=== PATIENT | female | born 1960 | race Caucasian/White ===

== ENCOUNTER 2017-01-03 19:41 | Inpatient (IN) | payer OTHER, MEDICARE ==
[2017-01-03] MEDS ORDERED: ONDANSETRON HCL 4 MG/2 ML VIAL ONE (19:46)
[2017-01-03 19:50] VITALS: O2SAT 99
[2017-01-03 20:04] LABS: I-STAT POTASSIUM 3.6 MMOL/L (3.5-4.9)
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
[2017-01-03 20:05] LABS: AUTOMATED NEUTROPHIL # 3.3 TH/MM3 (1.8-7.7); BASOPHIL # 0.1 TH/MM3 (0-0.2); BASOPHIL % 1.3 % (0.0-2.0); EOSINOPHIL # 0.3 TH/MM3 (0-0.4); EOSINOPHIL % 3.5 % (0.0-4.0); HEMATOCRIT 42.2 % (35.0-46.0); HEMO FLAGS DIFF FINAL; LYMPH % 41.4 % (9.0-44.0); MEAN CELL VOLUME 99.6 FL (80.0-100.0); MEAN CORPUSCULAR HEMOGLOBIN 32.8 PG (27.0-34.0); MEAN CORPUSCULAR HGB CONC 32.9 % (32.0-36.0); MONO % 7.4 % (0.0-8.0); NEUT % 46.4 % (16.0-70.0); PLATELET COUNT 221 TH/MM3 (150-450); RED BLOOD COUNT 4.23 MIL/MM3 (4.00-5.30); WHITE BLOOD COUNT 7.2 TH/MM3 (4.0-11.0)
[2017-01-03] MEDS ORDERED: IOHEXOL 350 MG/ML 10 ML VIAL (for RAD DIAG) IVCONTRAST ONE (20:08)
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
[2017-01-03 20:33] LABS: APTT (PATIENT) 23.9 SEC (24.3-30.1); PROTHROMBIN TIME - PATIENT 10.9 SEC (9.8-11.6)
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
[2017-01-03] MEDS ORDERED: DIPHTH/TETANUS/ACEL PERTUSSIS (BOOSTER) 0.5 ML VIAL/PFS IM ONE (20:43)
[2017-01-03] MEDS ORDERED: ceFAZolin 2 GM PREMIX 50 ML ONE (20:43)
[2017-01-03] MEDS ORDERED: ENALAPRILAT 1.25 MG/ML VIAL IV PUSH PRN (20:45)
[2017-01-03] MEDS ORDERED: LIDOCAINE HCL 1% 50 ML VIAL INFIL ONE (20:45)
[2017-01-03] MEDS ORDERED: ONDANSETRON HCL 4 MG/2 ML VIAL IV PUSH PRN (20:45)
[2017-01-03] MEDS ORDERED: HYDROmorphone HCL PF 1 MG/ML VIAL IVP PRN (20:45)
[2017-01-03] MEDS ORDERED: FLUMAZENIL 0.5 MG/5 ML VIAL IV PUSH PRN (20:45)
[2017-01-03] MEDS ORDERED: MISCELLANEOUS NURSING INFORMATION XX SCH (20:45)
[2017-01-03] MEDS ORDERED: LORazepam 2 MG/ML VIAL IV PUSH PRN ×4 (20:45)
[2017-01-03] MEDS ORDERED: SODIUM CHLORIDE 0.9% FLUSH 10 ML FLUSH IV FLUSH PRN (20:45)
[2017-01-03] MEDS ORDERED: LORazepam 1 MG TAB PO PRN (20:45)
[2017-01-03] MEDS ORDERED: LORazepam 2 MG TAB PO PRN (20:45)
[2017-01-03] MEDS ORDERED: CHLORHEXIDINE GLUCONATE 2 % 1 PACK (2 CLOTHS) TOP PRN (20:45)
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
[2017-01-03 21:00] VITALS: BP 121/66; PULSE 88; RESP 20; O2SAT 100
[2017-01-03] MEDS: DOCUSATE SODIUM 100 MG CAP PO SCH (21:00)
[2017-01-03] MEDS ORDERED: PANTOPRAZOLE SODIUM 40 MG VIAL IVP SCH (21:00)
[2017-01-03] MEDS: BACITRACIN TOP OINT 15 GM TUBE TOP SCH (21:00)
[2017-01-03 21:05] VITALS: RESP 20; O2SAT 100
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
[2017-01-03 21:45] VITALS: PULSE 92
[2017-01-03 22:00] VITALS: PULSE 97
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
[2017-01-03] MEDS: MULTIVITAMIN INJ 10 ML, THIAMINE INJ 100 MG in SODIUM CHLORID 0.9% 500 ML INJ 500 ML IV SCH (23:00)
[2017-01-03] MEDS: LACTATED RINGER'S 1000 ML INJ 1,000 ML IV SCH (23:00)
[2017-01-04] VITALS (12 sets, daily range): BP systolic 134–169; BP diastolic 60–72; PULSE 83–106; RESP 18–22; TEMP 98.2–100; O2SAT 96–99
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
[2017-01-04] MEDS: CHLORHEXIDINE GLUCONATE 2 % 1 PACK (2 CLOTHS) TOP SCH (04:00)
[2017-01-04 05:15] LABS: BASOPHIL % 0.5 % (0.0-2.0); EOSINOPHIL % 0.1 % (0.0-4.0); HEMATOCRIT 34.8 % (35.0-46.0); HEMO FLAGS DIFF FINAL; LYMPHOCYTE # 0.7 TH/MM3 (1.0-4.8); MEAN CELL VOLUME 99.7 FL (80.0-100.0); MEAN CORPUSCULAR HEMOGLOBIN 32.9 PG (27.0-34.0); MONO % 7.5 % (0.0-8.0); NEUT % 84.9 % (16.0-70.0); PLATELET COUNT 161 TH/MM3 (150-450); RED BLOOD COUNT 3.49 MIL/MM3 (4.00-5.30); RED CELL DISTRIBUTION WIDTH 14.1 % (11.6-17.2); WHITE BLOOD COUNT 9.4 TH/MM3 (4.0-11.0)
[2017-01-04 05:29] LABS: POTASSIUM 4.3 MEQ/L (3.5-5.1)
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
[2017-01-04] MEDS: LACTATED RINGER'S 1000 ML INJ 1,000 ML IV SCH ×2 (08:44→20:36)
[2017-01-04] MEDS: DOCUSATE SODIUM 100 MG CAP PO SCH ×2 (08:46→08:47)
[2017-01-04] MEDS: BACITRACIN TOP OINT 15 GM TUBE TOP SCH ×2 (08:48→21:28)
[2017-01-04] MEDS: LIDOCAINE HCL 5% PATCH T-DERMAL SCH (09:00)
[2017-01-04] MEDS: METHOCARBAMOL 500 MG TAB PO SCH ×3 (09:00→21:28)
[2017-01-04] MEDS: MAGNESIUM HYDROXIDE SUSP 30 ML CUP PO SCH ×2 (09:00→21:28)
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
[2017-01-04] MEDS: ACETAMINOPHEN/HYDROcodone 325 MG/5 MG TAB PO PRN (13:34)
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
[2017-01-04] MEDS ORDERED: IOHEXOL 350 MG/ML 10 ML VIAL (for RAD DIAG) IVCONTRAST ONE (18:56)
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
[2017-01-04] MEDS: MULTIVITAMIN INJ 10 ML, THIAMINE INJ 100 MG in SODIUM CHLORID 0.9% 500 ML INJ 500 ML IV SCH (22:23)
[2017-01-05] VITALS (8 sets, daily range): BP systolic 129–157; BP diastolic 62–71; PULSE 75–90; RESP 16–22; TEMP 98.2–98.5; O2SAT 95–97
[2017-01-05] MEDS: CHLORHEXIDINE GLUCONATE 2 % 1 PACK (2 CLOTHS) TOP SCH (00:15)
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
[2017-01-05 05:13] LABS: AUTOMATED NEUTROPHIL # 5.2 TH/MM3 (1.8-7.7); BASOPHIL # 0.1 TH/MM3 (0-0.2); BASOPHIL % 0.8 % (0.0-2.0); EOSINOPHIL # 0.1 TH/MM3 (0-0.4); EOSINOPHIL % 1.6 % (0.0-4.0); HEMATOCRIT 29.5 % (35.0-46.0); HEMO FLAGS DIFF FINAL; LYMPH % 14.2 % (9.0-44.0); MEAN CELL VOLUME 99.1 FL (80.0-100.0); MEAN CORPUSCULAR HEMOGLOBIN 33.2 PG (27.0-34.0); MEAN CORPUSCULAR HGB CONC 33.5 % (32.0-36.0); MONO % 11.5 % (0.0-8.0); NEUT % 71.9 % (16.0-70.0); PLATELET COUNT 130 TH/MM3 (150-450); RED BLOOD COUNT 2.98 MIL/MM3 (4.00-5.30); RED CELL DISTRIBUTION WIDTH 13.9 % (11.6-17.2); WHITE BLOOD COUNT 7.3 TH/MM3 (4.0-11.0)
[2017-01-05] MEDS: METHOCARBAMOL 500 MG TAB PO SCH ×3 (05:16→22:33)
[2017-01-05] MEDS: ACETAMINOPHEN/HYDROcodone 325 MG/5 MG TAB PO PRN ×2 (05:17→14:48)
[2017-01-05 05:42] LABS: ANION GAP 9 MEQ/L (5-15); AST (GOT) 57 U/L (15-37); BICARBONATE 25.8 MEQ/L (21.0-32.0); BLOOD UREA NITROGEN 7 MG/DL (7-18); CHLORIDE 101 MEQ/L (98-107); GLOMERULAR FILTRATION RATE 160 ML/MIN (>89); POTASSIUM 3.8 MEQ/L (3.5-5.1); SODIUM (NA) 136 MEQ/L (136-145)
[2017-01-05 05:43] LABS: ALT (GPT) 48 U/L (10-53)
[2017-01-05 05:45] LABS: ALKALINE PHOSPHATASE 78 U/L (45-117); TOTAL BILIRUBIN ADULT 1.4 MG/DL (0.2-1.0)
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
[2017-01-05] MEDS: DOCUSATE SODIUM 100 MG CAP PO SCH ×2 (09:18→20:03)
[2017-01-05] MEDS: LACTULOSE SYRUP 20 GM/30 ML CUP PO SCH (09:18)
[2017-01-05] MEDS: MAGNESIUM HYDROXIDE SUSP 30 ML CUP PO SCH ×2 (09:18→20:03)
[2017-01-05] MEDS: PANTOPRAZOLE SOD 40 MG DELAYED RELEASE TAB PO SCH (09:18)
[2017-01-05] MEDS: BACITRACIN TOP OINT 15 GM TUBE TOP SCH ×2 (09:20→21:00)
[2017-01-05] MEDS: LIDOCAINE HCL 5% PATCH T-DERMAL SCH (09:20)
[2017-01-05] MEDS: ENOXAPARIN SODIUM 40 MG/0.4 ML SYRINGE SQ SCH (12:30)
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
[2017-01-05] MEDS ORDERED: MAGN30S PO (15:20)
[2017-01-05] MEDS ORDERED: METH500T3 PO (15:20)
[2017-01-05] MEDS ORDERED: DOCU1CAP39 PO (15:20)
[2017-01-05] MEDS: MULTIVITAMIN INJ 10 ML, THIAMINE INJ 100 MG in SODIUM CHLORID 0.9% 500 ML INJ 500 ML IV SCH (22:33)
[2017-01-06] VITALS: BP 145/65; PULSE 83; RESP 21; TEMP 98.6; O2SAT 93
[2017-01-06 04:00] VITALS: BP 150/68; PULSE 74; PULSE 76; RESP 20; TEMP 98.4; O2SAT 96
[2017-01-06] MEDS: CHLORHEXIDINE GLUCONATE 2 % 1 PACK (2 CLOTHS) TOP SCH ×2 (04:00→23:46)
[2017-01-06 05:35] LABS: AUTOMATED NEUTROPHIL # 4.5 TH/MM3 (1.8-7.7); BASOPHIL % 0.7 % (0.0-2.0); EOSINOPHIL # 0.1 TH/MM3 (0-0.4); EOSINOPHIL % 2.2 % (0.0-4.0); HEMATOCRIT 28.3 % (35.0-46.0); HEMO FLAGS DIFF FINAL; LYMPH % 16.3 % (9.0-44.0); MEAN CELL VOLUME 99.2 FL (80.0-100.0); MEAN CORPUSCULAR HEMOGLOBIN 32.8 PG (27.0-34.0); MEAN CORPUSCULAR HGB CONC 33.1 % (32.0-36.0); MONO % 9.2 % (0.0-8.0); NEUT % 71.6 % (16.0-70.0); PLATELET COUNT 143 TH/MM3 (150-450); RED BLOOD COUNT 2.85 MIL/MM3 (4.00-5.30); RED CELL DISTRIBUTION WIDTH 13.7 % (11.6-17.2); WHITE BLOOD COUNT 6.3 TH/MM3 (4.0-11.0)
[2017-01-06 06:06] LABS: ALT (GPT) 44 U/L (10-53); ANION GAP 7 MEQ/L (5-15); AST (GOT) 46 U/L (15-37); BICARBONATE 28.8 MEQ/L (21.0-32.0); BLOOD UREA NITROGEN 8 MG/DL (7-18); CHLORIDE 102 MEQ/L (98-107); GLOMERULAR FILTRATION RATE 170 ML/MIN (>89); SODIUM (NA) 138 MEQ/L (136-145)
[2017-01-06 06:07] LABS: ALKALINE PHOSPHATASE 81 U/L (45-117); TOTAL BILIRUBIN ADULT 0.9 MG/DL (0.2-1.0)
[2017-01-06] MEDS: METHOCARBAMOL 500 MG TAB PO SCH ×3 (06:19→21:00)
--- NOTE | 2017-01-06 06:22 | RADRPT ---
EXAM DATE/TIME: 01/06/2017 05:37 [facility] COMPARISON: CHEST SINGLE AP, January 05, 2017, 4:33. INDICATIONS : Shortness of breath. MEDICAL HISTORY : None. SURGICAL HISTORY : None. ENCOUNTER: Subsequent ACUITY: 4 - 6 days PAIN SCORE: Non-responsive. LOCATION: Bilateral chest FINDINGS: A single view of the chest demonstrates the lungs to be symmetrically aerated without evidence of mas s, infiltrate or effusion. The cardiomediastinal contours are unremarkable. Left clavicular fracture is unchanged. CONCLUSION: Left clavicular fracture stable. Lungs remain clear. Russell Shah MD on January 06, 2017 at 6:20 Board Certified Radiologist. This report was verified electronically.
[2017-01-06 08:00] VITALS: BP 134/98; PULSE 74; RESP 14; TEMP 97.6; O2SAT 96
[2017-01-06] MEDS ORDERED: ALPRAZolam 0.5 MG TAB PO PRN (09:30)
[2017-01-06] MEDS: MAGNESIUM HYDROXIDE SUSP 30 ML CUP PO SCH ×2 (10:00→21:00)
[2017-01-06] MEDS: DOCUSATE SODIUM 100 MG CAP PO SCH ×2 (10:00→21:00)
[2017-01-06] MEDS: PANTOPRAZOLE SOD 40 MG DELAYED RELEASE TAB PO SCH (10:00)
[2017-01-06] MEDS: LACTULOSE SYRUP 20 GM/30 ML CUP PO SCH (10:00)
[2017-01-06] MEDS: LIDOCAINE HCL 5% PATCH T-DERMAL SCH (10:01)
[2017-01-06] MEDS: ENOXAPARIN SODIUM 40 MG/0.4 ML SYRINGE SQ SCH (10:02)
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
[2017-01-06 12:00] VITALS: BP 140/74; PULSE 77; RESP 20; TEMP 98.1; O2SAT 98
[2017-01-06] MEDS: ACETAMINOPHEN/HYDROcodone 325 MG/5 MG TAB PO PRN (12:45)
[2017-01-06 16:00] VITALS: BP 141/62; PULSE 75; RESP 20; TEMP 98; O2SAT 96
[2017-01-06 20:00] VITALS: BP 131/64; PULSE 85; RESP 17; TEMP 98.8; O2SAT 100
[2017-01-06] MEDS: BACITRACIN TOP OINT 15 GM TUBE TOP SCH (21:00)
[2017-01-07] VITALS (7 sets, daily range): BP systolic 99–141; BP diastolic 66–79; PULSE 74–123; RESP 19–26; TEMP 97.6–98.4; O2SAT 97–100
[2017-01-07] MEDS ORDERED: METOPROLOL TARTRATE 5 MG/5 ML VIAL IV PUSH PRN (02:30)
[2017-01-07] MEDS: METHOCARBAMOL 500 MG TAB PO SCH ×4 (05:23→22:45)
[2017-01-07 05:53] LABS: AUTOMATED NEUTROPHIL # 3.6 TH/MM3 (1.8-7.7); BASOPHIL # 0.1 TH/MM3 (0-0.2); BASOPHIL % 1.1 % (0.0-2.0); EOSINOPHIL # 0.2 TH/MM3 (0-0.4); EOSINOPHIL % 3.8 % (0.0-4.0); HEMATOCRIT 30.8 % (35.0-46.0); HEMO FLAGS DIFF FINAL; LYMPH % 24.2 % (9.0-44.0); LYMPHOCYTE # 1.4 TH/MM3 (1.0-4.8); MEAN CELL VOLUME 99.1 FL (80.0-100.0); MEAN CORPUSCULAR HEMOGLOBIN 32.9 PG (27.0-34.0); MEAN CORPUSCULAR HGB CONC 33.2 % (32.0-36.0); MONO % 8.3 % (0.0-8.0); NEUT % 62.6 % (16.0-70.0); PLATELET COUNT 207 TH/MM3 (150-450); RED BLOOD COUNT 3.11 MIL/MM3 (4.00-5.30); RED CELL DISTRIBUTION WIDTH 13.6 % (11.6-17.2); WHITE BLOOD COUNT 5.7 TH/MM3 (4.0-11.0)
[2017-01-07 06:19] LABS: ANION GAP 6 MEQ/L (5-15); AST (GOT) 47 U/L (15-37); BLOOD UREA NITROGEN 9 MG/DL (7-18); CHLORIDE 99 MEQ/L (98-107); GLOMERULAR FILTRATION RATE 98 ML/MIN (>89); POTASSIUM 3.9 MEQ/L (3.5-5.1); SODIUM (NA) 134 MEQ/L (136-145)
[2017-01-07 06:20] LABS: ALT (GPT) 44 U/L (10-53)
--- NOTE | 2017-01-07 06:22 | RADRPT ---
EXAM DATE/TIME: 01/07/2017 06:08 [facility] COMPARISON: CHEST SINGLE AP, January 05, 2017, 4:33. CHEST SINGLE AP, January 06, 2017, 5:37. INDICATIONS : Short of breath. MEDICAL HISTORY : SURGICAL HISTORY : ENCOUNTER: Subsequent ACUITY: 4 - 6 days PAIN SCORE: Non-responsive. LOCATION: Bilateral chest FINDINGS: A single view of the chest demonstrates the lungs to be symmetrically aerated without evidence of mas s, infiltrate or effusion. The cardiomediastinal contours are unremarkable. The left clavicular frac ture is unchanged. CONCLUSION: Stable examination. Left clavicular fracture remains. Lungs are clear. Russell Shah MD on January 07, 2017 at 6:19 Board Certified Radiologist. This report was verified electronically.
[2017-01-07 06:23] LABS: ALKALINE PHOSPHATASE 88 U/L (45-117)
[2017-01-07] MEDS: PANTOPRAZOLE SOD 40 MG DELAYED RELEASE TAB PO SCH (08:31)
[2017-01-07] MEDS: DOCUSATE SODIUM 100 MG CAP PO SCH ×2 (08:31→21:00)
[2017-01-07] MEDS: MAGNESIUM HYDROXIDE SUSP 30 ML CUP PO SCH ×2 (08:31→21:00)
[2017-01-07] MEDS: BACITRACIN TOP OINT 15 GM TUBE TOP SCH ×2 (08:32→21:00)
[2017-01-07] MEDS: LIDOCAINE HCL 5% PATCH T-DERMAL SCH (08:32)
[2017-01-07] MEDS: LACTULOSE SYRUP 20 GM/30 ML CUP PO SCH (08:32)
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
[2017-01-07] MEDS: METOPROLOL SUCCINATE 25 MG EXTENDED RELEASE TAB PO SCH (10:44)
[2017-01-07 12:20] LABS: HEMATOCRIT 30.7 % (35.0-46.0); MEAN CELL VOLUME 99.1 FL (80.0-100.0); MEAN CORPUSCULAR HEMOGLOBIN 33.7 PG (27.0-34.0); PLATELET COUNT 235 TH/MM3 (150-450); RED CELL DISTRIBUTION WIDTH 13.6 % (11.6-17.2); REVIEW FLAG FINAL; WHITE BLOOD COUNT 6.7 TH/MM3 (4.0-11.0)
[2017-01-07 12:34] LABS: APTT (PATIENT) 27.8 SEC (24.3-30.1); INTERNATIONAL NORMALIZED RATIO 0.9 RATIO
[2017-01-07] MEDS: DILTIAZEM INJ 125 MG in SODIUM CHLORIDE 0.9% INJ 100 ML IV PRN (12:37)
[2017-01-07] MEDS ORDERED: LACTULOSE SYRUP 20 GM/30 ML CUP PO ONE (12:45)
[2017-01-07] MEDS: HEPARIN-D5W 25,000 U/250 ML 250 ML IV PRN (12:48)
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
[2017-01-07] MEDS: SODIUM CHLOR 0.9% 1000 ML INJ 1,000 ML IV SCH (15:00)
[2017-01-07] MEDS ORDERED: ALBUMIN 25% INJ 100 ML IV ONE (15:00)
[2017-01-07 20:45] LABS: APTT (PATIENT) 33.1 SEC (24.3-30.1)
[2017-01-08] VITALS (9 sets, daily range): BP systolic 130–158; BP diastolic 61–72; PULSE 82–93; RESP 12–28; TEMP 97.8–98.5; O2SAT 96–98
[2017-01-08] MEDS: CHLORHEXIDINE GLUCONATE 2 % 1 PACK (2 CLOTHS) TOP SCH (00:37)
[2017-01-08] MEDS: SODIUM CHLOR 0.9% 1000 ML INJ 1,000 ML IV SCH ×2 (04:20→17:40)
[2017-01-08] MEDS: METHOCARBAMOL 500 MG TAB PO SCH ×4 (05:15→21:19)
[2017-01-08 05:34] LABS: APTT (PATIENT) 38.4 SEC (24.3-30.1)
[2017-01-08 05:39] LABS: BICARBONATE 27.5 MEQ/L (21.0-32.0); POTASSIUM 3.8 MEQ/L (3.5-5.1)
[2017-01-08] MEDS: LACTULOSE SYRUP 20 GM/30 ML CUP PO SCH (07:20)
[2017-01-08] MEDS: DOCUSATE SODIUM 100 MG CAP PO SCH ×2 (07:20→20:22)
[2017-01-08] MEDS: MAGNESIUM HYDROXIDE SUSP 30 ML CUP PO SCH ×2 (07:20→20:22)
[2017-01-08] MEDS: BACITRACIN TOP OINT 15 GM TUBE TOP SCH ×2 (07:21→20:22)
[2017-01-08] MEDS: PANTOPRAZOLE SOD 40 MG DELAYED RELEASE TAB PO SCH (07:55)
[2017-01-08] MEDS: LIDOCAINE HCL 5% PATCH T-DERMAL SCH (07:55)
[2017-01-08] MEDS: METOPROLOL SUCCINATE 25 MG EXTENDED RELEASE TAB PO SCH (07:55)
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
[2017-01-08 12:56] LABS: APTT (PATIENT) 41.3 SEC (24.3-30.1)
[2017-01-08] MEDS: QUEtiapine FUMARATE 25 MG TAB PO SCH ×2 (12:56→20:22)
--- NOTE | 2017-01-08 18:15 | EKG ---
Date Performed: 01/07/2017 Time Performed: 05:11:14 PTAGE: 56 years EKG: Atrial fibrillation with rapid ventricular response. Inferior ST-T changes are nonspecific Abnormal ECG NO PREVIOUS TRACING DOCTOR: Mykel Nava Interpretating Date/Time 01/08/2017 18:14:06
[2017-01-08] MEDS: HEPARIN-D5W 25,000 U/250 ML 250 ML IV PRN (18:55)
[2017-01-08 19:56] LABS: APTT (PATIENT) 44.1 SEC (24.3-30.1)
[2017-01-09] VITALS (12 sets, daily range): BP systolic 111–170; BP diastolic 53–74; PULSE 73–103; RESP 18–20; TEMP 97.6–98.3; O2SAT 95–97
[2017-01-09] MEDS: CHLORHEXIDINE GLUCONATE 2 % 1 PACK (2 CLOTHS) TOP SCH (04:00)
[2017-01-09] MEDS: DILTIAZEM INJ 125 MG in SODIUM CHLORIDE 0.9% INJ 100 ML IV PRN (04:44)
[2017-01-09] MEDS: SODIUM CHLOR 0.9% 1000 ML INJ 1,000 ML IV SCH (04:44)
[2017-01-09] MEDS: METHOCARBAMOL 500 MG TAB PO SCH ×3 (05:24→21:25)
[2017-01-09 05:37] LABS: APTT (PATIENT) 50.6 SEC (24.3-30.1)
[2017-01-09] MEDS: MAGNESIUM HYDROXIDE SUSP 30 ML CUP PO SCH ×2 (09:00→20:14)
[2017-01-09] MEDS: LACTULOSE SYRUP 20 GM/30 ML CUP PO SCH (09:00)
[2017-01-09] MEDS: DOCUSATE SODIUM 100 MG CAP PO SCH ×2 (09:00→20:13)
[2017-01-09] MEDS: METOPROLOL SUCCINATE 25 MG EXTENDED RELEASE TAB PO SCH (09:05)
[2017-01-09] MEDS: QUEtiapine FUMARATE 25 MG TAB PO SCH ×2 (09:05→20:13)
[2017-01-09] MEDS: PANTOPRAZOLE SOD 40 MG DELAYED RELEASE TAB PO SCH (09:05)
[2017-01-09] MEDS: BACITRACIN TOP OINT 15 GM TUBE TOP SCH ×2 (09:07→20:15)
[2017-01-09] MEDS: LIDOCAINE HCL 5% PATCH T-DERMAL SCH (09:07)
[2017-01-09] MEDS: APIXABAN 5 MG TABLET PO SCH ×2 (10:18→20:13)
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
[2017-01-09] MEDS: NICOTINE 14 MG/24 HR PATCH T-DERMAL SCH (15:32)
[2017-01-09] MEDS: DILTIAZEM HCL 60 MG TAB PO SCH ×2 (17:46→20:13)
[2017-01-10] VITALS (11 sets, daily range): BP systolic 100–146; BP diastolic 56–75; PULSE 66–88; RESP 15–21; TEMP 95.6–98.2; O2SAT 96–99
[2017-01-10] MEDS: CHLORHEXIDINE GLUCONATE 2 % 1 PACK (2 CLOTHS) TOP SCH (04:00)
[2017-01-10] MEDS: METHOCARBAMOL 500 MG TAB PO SCH ×3 (05:30→21:25)
[2017-01-10 06:16] LABS: APTT (PATIENT) 30.8 SEC (24.3-30.1)
[2017-01-10 06:25] LABS: HEMATOCRIT 29.7 % (35.0-46.0); MEAN CELL VOLUME 99.3 FL (80.0-100.0); MEAN CORPUSCULAR HEMOGLOBIN 33.1 PG (27.0-34.0); MEAN CORPUSCULAR HGB CONC 33.3 % (32.0-36.0); PLATELET COUNT 315 TH/MM3 (150-450); RED BLOOD COUNT 2.99 MIL/MM3 (4.00-5.30); RED CELL DISTRIBUTION WIDTH 13.6 % (11.6-17.2); REVIEW FLAG FINAL; WHITE BLOOD COUNT 5.6 TH/MM3 (4.0-11.0)
[2017-01-10] MEDS: LACTULOSE SYRUP 20 GM/30 ML CUP PO SCH (09:00)
[2017-01-10] MEDS: BACITRACIN TOP OINT 15 GM TUBE TOP SCH ×2 (09:00→19:40)
[2017-01-10] MEDS: MAGNESIUM HYDROXIDE SUSP 30 ML CUP PO SCH ×2 (09:00→19:39)
[2017-01-10] MEDS: REMOVE OLD NICOTINE PATCH T-DERMAL SCH (09:00)
[2017-01-10] MEDS: NICOTINE 14 MG/24 HR PATCH T-DERMAL SCH (09:14)
[2017-01-10] MEDS: APIXABAN 5 MG TABLET PO SCH ×2 (09:15→19:39)
[2017-01-10] MEDS: QUEtiapine FUMARATE 25 MG TAB PO SCH ×2 (09:15→19:39)
[2017-01-10] MEDS: LIDOCAINE HCL 5% PATCH T-DERMAL SCH (09:15)
[2017-01-10] MEDS: METOPROLOL SUCCINATE 25 MG EXTENDED RELEASE TAB PO SCH (09:16)
[2017-01-10] MEDS: PANTOPRAZOLE SOD 40 MG DELAYED RELEASE TAB PO SCH (09:16)
[2017-01-10] MEDS: DOCUSATE SODIUM 100 MG CAP PO SCH ×2 (09:16→19:39)
[2017-01-10] MEDS: DILTIAZEM HCL 60 MG TAB PO SCH ×4 (09:16→21:25)
--- NOTE | 2017-01-10 10:06 | ECHRPT ---
Indication: AFIB CONCLUSIONS Normal left ventricular size. Wall thickness is normal. The left ventricular systolic function is normal with an estimated ejection fraction in the range of 55-60%. Mild to moderate mitral valve regurgitation. myxomatous appearing mitral valve leaflest withmild prolapse BP: 135 / 72 HR: 87 Rhythm: Atrial fibrillation Technical Quality:Good FINDINGS LEFT VENTRICLE Normal left ventricular size. Wall thickness is normal. The left ventricular systolic function is normal with an estimated ejection fraction in the range of 55-60%. RIGHT VENTRICLE Normal right ventricular size and systolic function. LEFT ATRIUM The left atrial size is normal. RIGHT ATRIUM The right atrial size is normal. ATRIAL SEPTUM Normal atrial septal thickness without atrial level shunting by limited color doppler interrogation. AORTA The aortic root and proximal ascending aorta are normal in size on limited imaging. MITRAL VALVE Mild mitral valve regurgitation. AORTIC VALVE Trileaflet aortic valve. No aortic valve stenosis or regurgitation. TRICUSPID VALVE Structurally normal tricuspid valve. No tricuspid valve stenosis or regurgitation. PULMONARY VALVE The pulmonary valve is not well visualized. VESSELS The inferior vena cava is normal in size. PERICARDIUM No pericardial effusion. Mendel Terry MD, FACC, [facility] [place] (Electronically Signed) Final Date:10 January 2017 10:05
[2017-01-10] MEDS ORDERED: APIX5TAB PO (11:40)
[2017-01-10] MEDS ORDERED: DILT60TA33 PO (11:40)
[2017-01-10] MEDS ORDERED: NICO14DI23 T-DERMAL (11:40)
[2017-01-10] MEDS ORDERED: METO1TAB42 PO (11:40)
[2017-01-10] MEDS ORDERED: HYDR-3516 PO (11:47)
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
[2017-01-10] MEDS ORDERED: PROP10TA6 PO (18:55)
[2017-01-10] MEDS ORDERED: COUM4TAB PO (18:55)
[2017-01-10] MEDS ORDERED: CART120C PO (18:55)
[2017-01-10] MEDS ORDERED: DIGO0.12 PO (18:55)
[2017-01-10] MEDS ORDERED: ATOR80TA45 PO (18:55)
[2017-01-11] VITALS: BP 94/55; PULSE 89; RESP 18; TEMP 96.1; O2SAT 96
[2017-01-11 04:00] VITALS: BP 106/60; PULSE 90; RESP 18; TEMP 96.5; O2SAT 98
[2017-01-11] MEDS: CHLORHEXIDINE GLUCONATE 2 % 1 PACK (2 CLOTHS) TOP SCH (04:00)
[2017-01-11] MEDS: METHOCARBAMOL 500 MG TAB PO SCH ×3 (05:34→21:08)
[2017-01-11] MEDS: ACETAMINOPHEN/HYDROcodone 325 MG/5 MG TAB PO PRN ×4 (05:34→21:18)
--- NOTE | 2017-01-11 06:43 | PD.ORT.PN ---
Subjective Subjective Remarks Pain is controlled. She is resting comfortably Objective Vitals Vital Signs Date Time Temp Pulse Resp B/P (MAP) Pulse Ox O2 Delivery O2 Flow Rate FiO2 01/11/17 04:00 96.5 90 18 106/60 (75) 98 01/11/17 00:00 96.1 89 18 94/55 (68) 96 01/10/17 23:24 88 01/10/17 20:00 98.2 79 18 118/56 (76) 98 Manual Cuff/Auscultation 01/10/17 16:00 95.6 66 18 127/65 (85) 99 01/10/17 13:45 100/62 (75) 01/10/17 12:00 74 01/10/17 12:00 97.9 74 18 113/57 (75) 98 01/10/17 10:00 68 01/10/17 08:00 98.2 73 15 146/66 (92) 99 01/10/17 08:00 73 01/10/17 08:00 97 Room Air I/O 01/10/17 01/10/17 01/10/17 01/11/17 01/11/17 01/11/17 07:00 15:00 23:00 07:00 15:00 23:00 Intake Total 600 ml 240 ml 240 ml Output Total 650 ml 650 ml Balance -50 ml -650 ml 240 ml 240 ml Intake Oral 600 ml 240 ml 240 ml Output Urine Total 650 ml 650 ml # Voids 1 2 # Bowel Movements 0 0 0 0 Result Diagram: 01/10/17 0518 01/08/17 0501 Imaging Last 24 hours Impressions Knee X-Ray 01/04/17 0000 Signed Impressions: Service Date/Time: Wednesday, January 04, 2017 08:45 - CONCLUSION: Fibular fracture. CT scan would be benefit to look at the tibia. Ck Llamas MD FACR Chest X-Ray 01/04/17 0000 Signed Impressions: Service Date/Time: Wednesday, January 04, 2017 03:11 - CONCLUSION: Normal examination. Russell Shah MD Thoracic Spine CT 01/03/171943 Signed Impressions: Service Date/Time: Tuesday, January 03, 2017 20:08 - CONCLUSION: No acute thoracic spine abnormality is identified. Alek Wodo MD Pelvis X-Ray 01/03/171943 Signed Impressions: Service Date/Time: Tuesday, January 03, 2017 19:44 - CONCLUSION: No acute finding is appreciated given the technique. Alek Wood MD Maxillofacial CT 01/03/171943 Signed Impressions: Service Date/Time: Tuesday, January 03, 2017 19:58 - CONCLUSION: Bilateral nasal bone fractures with soft tissue swelling. No other maxillofacial fracture is identified on this motion degraded exam. Alek Wood MD Lumbar Spine CT 01/03/171943 Signed Impressions: Service Date/Time: Tuesday, January 03, 2017 20:08 - CONCLUSION: No acute lumbar spine abnormality is identified. Alek Wood MD Head CT 01/03/171943 Signed Impressions: Service Date/Time: Tuesday, January 03, 2017 19:58 - CONCLUSION: 1. No acute intracranial abnormality is identified. 2. Bilateral nasal bone fractures. 3. Mild right frontal scalp soft tissue swelling with subcutaneous air. 4. Encephalomalacia in the left frontal and temporal lobes likely related to old ischemic event. Alek Wood MD Chest X-Ray 01/03/171943 Signed Impressions: Service Date/Time: Tuesday, January 03, 2017 19:44 - CONCLUSION: 1. Partially visualized left mid clavicle fracture. 2. Possible air space consolidation/contusion in the right midlung zone. Alek Wood MD Chest CT 01/03/171943 Signed Impressions: Service Date/Time: Tuesday, January 03, 2017 20:08 - CONCLUSION: 1. Bilateral acute rib fractures involving the sixth through eighth ribs on the right and the second and third ribs on the left. No pneumothorax is present. 2. Comminuted left midclavicle fracture. Questionable nondisplaced midsternal fracture. 3. Patchy airspace opacities in the right upper and right middle lobe could represent atelectasis or pulmonary contusion. Alek Wood MD Cervical Spine CT 01/03/171943 Signed Impressions: Service Date/Time: Tuesday, January 03, 2017 19:58 - CONCLUSION: No acute cervical spine abnormality is identified. Alek Wood MD Abdomen/Pelvis CT 01/03/171943 Signed Impressions: Service Date/Time: Tuesday, January 03, 2017 20:08 - CONCLUSION: There is a 12 mm hypodense area in the medial aspect of the spleen which is nonspecific but could represent splenic contusion. No other acute finding is identified in the abdomen or pelvis. Alek Wood MD Objective Remarks Right lower extremity: Short leg splint and knee immobilizer in place. Distally intact sensation active dorsiflexion plantar flexion of toes.. Good capillary refills Left upper extremity: Tenderness to palpation over clavicle. No tenderness over elbow wrist or fingers. Full extension and flexion of all fingers Assessment & Plan Assessment and Plan 1) Left Clavicle Fx - nonop -maintain sling -NWB 2) Right Distal Tibia and Calcaneus fxs - nonop -maintain splint at all times -NWB 3) Right Tibial Plateau Fx - nonop -CT reviewed. fracture aligned well. will plan for nonop treatment -knee brace at all times -no leg lifts, quad sets, ROM, strengthening. -NWB Case management for rehabilitation placement Orthopedically cleared for discharge to rehabilitation when bed available Repeat x-rays in 10-[address] uLisa Simpson,Ted GREENBERG Jan 11, 2017 06:43
[2017-01-11 08:00] VITALS: BP 98/69; PULSE 86; RESP 17; TEMP 96.5; O2SAT 97
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
[2017-01-11] MEDS: QUEtiapine FUMARATE 25 MG TAB PO SCH ×2 (10:09→21:08)
[2017-01-11] MEDS: DILTIAZEM HCL 60 MG TAB PO SCH ×4 (10:10→21:07)
[2017-01-11] MEDS: DOCUSATE SODIUM 100 MG CAP PO SCH ×2 (10:10→21:07)
[2017-01-11] MEDS: PANTOPRAZOLE SOD 40 MG DELAYED RELEASE TAB PO SCH (10:10)
[2017-01-11] MEDS: METOPROLOL SUCCINATE 25 MG EXTENDED RELEASE TAB PO SCH (10:10)
[2017-01-11] MEDS: REMOVE OLD NICOTINE PATCH T-DERMAL SCH (10:11)
[2017-01-11] MEDS: APIXABAN 5 MG TABLET PO SCH ×2 (10:11→21:08)
[2017-01-11] MEDS: NICOTINE 14 MG/24 HR PATCH T-DERMAL SCH (10:11)
[2017-01-11] MEDS: LACTULOSE SYRUP 20 GM/30 ML CUP PO SCH (10:12)
[2017-01-11] MEDS: LIDOCAINE HCL 5% PATCH T-DERMAL SCH (10:12)
[2017-01-11] MEDS: BACITRACIN TOP OINT 15 GM TUBE TOP SCH ×2 (10:18→21:00)
[2017-01-11] MEDS: MAGNESIUM HYDROXIDE SUSP 30 ML CUP PO SCH ×2 (10:18→21:07)
--- NOTE | 2017-01-11 10:20 | RADRPT ---
EXAM DATE/TIME: 01/11/2017 09:33 [facility] COMPARISON: CT ANKLE RIGHT W/O CONTRAST, January 03, 2017, 21:10. ANKLE RIGHT LIMITED (AP&LAT), January 03 17, 19:44. INDICATIONS : Right ankle pain; evaluate right ankle fracture. MEDICAL HISTORY : None. SURGICAL HISTORY : None. ENCOUNTER: Subsequent ACUITY: 1 week PAIN SCORE: 8/10 LOCATION: Right ankle. FINDINGS: 3 views of the right ankle with overlying cast material in place again documents a comminuted fractur e of the posterior calcaneus with similar configuration to the prior examination. The fracture involv ing the distal tibia described on prior CT is not appreciated on this examination. There is mild soft tissue swelling. No radiopaque foreign body is identified. CONCLUSION: Posterior calcaneus fracture has a stable appearance and the distal tibia fracture is not visualized. Alek Wood MD on January 11, 2017 at 10:15 Board Certified Radiologist. This report was verified electronically.
--- NOTE | 2017-01-11 10:22 | RADRPT ---
EXAM DATE/TIME: 01/11/2017 09:35 [facility] COMPARISON: CT KNEE RIGHT W/O CONTRAST, January 04, 2017, 18:11. KNEE RIGHT LTD (1 OR 2 VWS), January 04, 2017 , 8:45. INDICATIONS : Right knee pain; evaluate right knee fracture. MEDICAL HISTORY : None. SURGICAL HISTORY : None. ENCOUNTER: Subsequent ACUITY: 1 week PAIN SCORE: 10/10 LOCATION: Right knee. FINDINGS: 3 views of the right knee demonstrate a transverse fracture of the proximal tibial metaphysis and tib ial plateau. There is a stable moderate to large joint effusion. No acute soft tissue abnormality is identified. CONCLUSION: Stable examination of the right knee with large joint effusion and proximal tibia fracture. Alek Wood MD on January 11, 2017 at 10:18 Board Certified Radiologist. This report was verified electronically.
[2017-01-11 12:00] VITALS: BP 98/69; PULSE 94; RESP 17; TEMP 96.5; O2SAT 98
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
[2017-01-11 16:00] VITALS: BP 106/68; PULSE 70; RESP 18; TEMP 96.9; O2SAT 98
[2017-01-11 20:00] VITALS: BP 101/60; PULSE 70; RESP 17; TEMP 96.3; O2SAT 97
[2017-01-12] VITALS (8 sets, daily range): BP systolic 92–119; BP diastolic 59–82; PULSE 65–141; RESP 15–18; TEMP 96.5–98.2; O2SAT 95–98
[2017-01-12] MEDS: CHLORHEXIDINE GLUCONATE 2 % 1 PACK (2 CLOTHS) TOP SCH (04:00)
[2017-01-12] MEDS: METHOCARBAMOL 500 MG TAB PO SCH ×3 (06:13→21:31)
--- NOTE | 2017-01-12 06:40 | PD.ORT.PN ---
Subjective Subjective Remarks Pain is controlled. She is resting comfortably Objective Vitals Vital Signs Date Time Temp Pulse Resp B/P (MAP) Pulse Ox O2 Delivery O2 Flow Rate FiO2 01/12/17 04:00 96.6 80 15 111/63 (79) 97 01/12/17 00:00 96.7 65 16 100/59 (73) 97 01/11/17 20:00 96.3 70 17 101/60 (74) 97 01/11/17 16:00 96.9 70 18 106/68 (81) 98 01/11/17 12:00 96.5 94 17 98/69 (79) 98 01/11/17 08:00 96.5 86 17 98/69 (79) 97 I/O 01/11/17 01/11/17 01/11/17 01/12/17 01/12/17 01/12/17 07:00 15:00 23:00 07:00 15:00 23:00 Intake Total 240 ml 480 ml 720 ml 100 ml Balance 240 ml 480 ml 720 ml 100 ml Intake Oral 240 ml 480 ml 720 ml 100 ml # Voids 2 2 1 3 # Bowel Movements 0 0 Result Diagram: 01/10/17 0518 01/08/17 0501 Imaging Last 24 hours Impressions Knee X-Ray 01/04/17 0000 Signed Impressions: Service Date/Time: Wednesday, January 04, 2017 08:45 - CONCLUSION: Fibular fracture. CT scan would be benefit to look at the tibia. Ck Llamas MD FACR Chest X-Ray 01/04/17 0000 Signed Impressions: Service Date/Time: Wednesday, January 04, 2017 03:11 - CONCLUSION: Normal examination. Russell Shah MD Thoracic Spine CT 01/03/171943 Signed Impressions: Service Date/Time: Tuesday, January 03, 2017 20:08 - CONCLUSION: No acute thoracic spine abnormality is identified. Alek Wood MD Pelvis X-Ray 01/03/171943 Signed Impressions: Service Date/Time: Tuesday, January 03, 2017 19:44 - CONCLUSION: No acute finding is appreciated given the technique. Alek Wood MD Maxillofacial CT 01/03/171943 Signed Impressions: Service Date/Time: Tuesday, January 03, 2017 19:58 - CONCLUSION: Bilateral nasal bone fractures with soft tissue swelling. No other maxillofacial fracture is identified on this motion degraded exam. Alek Wood MD Lumbar Spine CT 01/03/171943 Signed Impressions: Service Date/Time: Tuesday, January 03, 2017 20:08 - CONCLUSION: No acute lumbar spine abnormality is identified. Alek Wood MD Head CT 01/03/171943 Signed Impressions: Service Date/Time: Tuesday, January 03, 2017 19:58 - CONCLUSION: 1. No acute intracranial abnormality is identified. 2. Bilateral nasal bone fractures. 3. Mild right frontal scalp soft tissue swelling with subcutaneous air. 4. Encephalomalacia in the left frontal and temporal lobes likely related to old ischemic event. Alek Wood MD Chest X-Ray 01/03/171943 Signed Impressions: Service Date/Time: Tuesday, January 03, 2017 19:44 - CONCLUSION: 1. Partially visualized left mid clavicle fracture. 2. Possible air space consolidation/contusion in the right midlung zone. Alek Wood MD Chest CT 01/03/171943 Signed Impressions: Service Date/Time: Tuesday, January 03, 2017 20:08 - CONCLUSION: 1. Bilateral acute rib fractures involving the sixth through eighth ribs on the right and the second and third ribs on the left. No pneumothorax is present. 2. Comminuted left midclavicle fracture. Questionable nondisplaced midsternal fracture. 3. Patchy airspace opacities in the right upper and right middle lobe could represent atelectasis or pulmonary contusion. Alek Wood MD Cervical Spine CT 01/03/171943 Signed Impressions: Service Date/Time: Tuesday, January 03, 2017 19:58 - CONCLUSION: No acute cervical spine abnormality is identified. Alek Wood MD Abdomen/Pelvis CT 01/03/171943 Signed Impressions: Service Date/Time: Tuesday, January 03, 2017 20:08 - CONCLUSION: There is a 12 mm hypodense area in the medial aspect of the spleen which is nonspecific but could represent splenic contusion. No other acute finding is identified in the abdomen or pelvis. Alek Wood MD Objective Remarks Right lower extremity: Short leg splint and knee immobilizer in place. Distally intact sensation active dorsiflexion plantar flexion of toes.. Good capillary refills Left upper extremity: Tenderness to palpation over clavicle. No tenderness over elbow wrist or fingers. Full extension and flexion of all fingers Assessment & Plan Assessment and Plan 1) Left Clavicle Fx - nonop -maintain sling -NWB 2) Right Distal Tibia and Calcaneus fxs - nonop -maintain splint at all times -NWB 3) Right Tibial Plateau Fx - nonop -CT reviewed. fracture aligned well. will plan for nonop treatment -knee brace at all times -no leg lifts, quad sets, ROM, strengthening. -NWB X-rays show appropriate alignment of all 4 fractures Case management for rehabilitation placement Orthopedically cleared for discharge to rehabilitation when bed available Repeat x-rays in [address] Luisa Simpson,Ted GREENBERG Jan 12, 2017 06:39
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
[2017-01-12] MEDS: NICOTINE 14 MG/24 HR PATCH T-DERMAL SCH (08:54)
[2017-01-12] MEDS: LIDOCAINE HCL 5% PATCH T-DERMAL SCH (08:55)
[2017-01-12] MEDS: APIXABAN 5 MG TABLET PO SCH ×2 (08:57→21:30)
[2017-01-12] MEDS: PANTOPRAZOLE SOD 40 MG DELAYED RELEASE TAB PO SCH (08:57)
[2017-01-12] MEDS: METOPROLOL SUCCINATE 25 MG EXTENDED RELEASE TAB PO SCH (09:00)
[2017-01-12] MEDS: BACITRACIN TOP OINT 15 GM TUBE TOP SCH ×2 (09:00→21:00)
[2017-01-12] MEDS: ACETAMINOPHEN/HYDROcodone 325 MG/5 MG TAB PO PRN (09:00)
[2017-01-12] MEDS: DOCUSATE SODIUM 100 MG CAP PO SCH ×2 (09:00→21:31)
[2017-01-12] MEDS: QUEtiapine FUMARATE 25 MG TAB PO SCH ×2 (09:00→21:30)
[2017-01-12] MEDS: REMOVE OLD NICOTINE PATCH T-DERMAL SCH (09:00)
[2017-01-12] MEDS: DILTIAZEM HCL 60 MG TAB PO SCH ×4 (09:00→21:31)
[2017-01-12] MEDS: MAGNESIUM HYDROXIDE SUSP 30 ML CUP PO SCH ×2 (09:01→21:30)
[2017-01-12] MEDS: LACTULOSE SYRUP 20 GM/30 ML CUP PO SCH (09:02)
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
[2017-01-12] MEDS ORDERED: SERO25TA PO (14:47)
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
[2017-01-13 00:07] VITALS: BP 109/69; PULSE 85; RESP 16; TEMP 96.2; O2SAT 97
[2017-01-13 00:30] VITALS: PULSE 80
[2017-01-13] MEDS: CHLORHEXIDINE GLUCONATE 2 % 1 PACK (2 CLOTHS) TOP SCH (04:00)
[2017-01-13 04:03] VITALS: BP 125/70; PULSE 80; RESP 16; TEMP 96.9; O2SAT 98
[2017-01-13] MEDS: METHOCARBAMOL 500 MG TAB PO SCH ×2 (06:00→12:51)
[2017-01-13 06:47] LABS: HEMATOCRIT 33.3 % (35.0-46.0); MEAN CELL VOLUME 98.6 FL (80.0-100.0); MEAN CORPUSCULAR HEMOGLOBIN 33.8 PG (27.0-34.0); MEAN CORPUSCULAR HGB CONC 34.3 % (32.0-36.0); PLATELET COUNT 381 TH/MM3 (150-450); RED BLOOD COUNT 3.38 MIL/MM3 (4.00-5.30); RED CELL DISTRIBUTION WIDTH 13.5 % (11.6-17.2); REVIEW FLAG FINAL
[2017-01-13 08:00] VITALS: BP 125/74; PULSE 89; RESP 18; TEMP 96.1; O2SAT 96
[2017-01-13] MEDS: NICOTINE 14 MG/24 HR PATCH T-DERMAL SCH (08:27)
[2017-01-13] MEDS: REMOVE OLD NICOTINE PATCH T-DERMAL SCH (08:27)
[2017-01-13] MEDS: LIDOCAINE HCL 5% PATCH T-DERMAL SCH (08:28)
[2017-01-13] MEDS: ACETAMINOPHEN/HYDROcodone 325 MG/5 MG TAB PO PRN ×2 (08:28→12:52)
[2017-01-13] MEDS: PANTOPRAZOLE SOD 40 MG DELAYED RELEASE TAB PO SCH (08:28)
[2017-01-13] MEDS: METOPROLOL SUCCINATE 25 MG EXTENDED RELEASE TAB PO SCH (08:29)
[2017-01-13] MEDS: QUEtiapine FUMARATE 25 MG TAB PO SCH (08:29)
[2017-01-13] MEDS: APIXABAN 5 MG TABLET PO SCH (08:29)
[2017-01-13] MEDS: DILTIAZEM HCL 60 MG TAB PO SCH ×2 (08:29→12:51)
[2017-01-13] MEDS: MAGNESIUM HYDROXIDE SUSP 30 ML CUP PO SCH (08:35)
[2017-01-13] MEDS: LACTULOSE SYRUP 20 GM/30 ML CUP PO SCH (08:35)
[2017-01-13] MEDS: BACITRACIN TOP OINT 15 GM TUBE TOP SCH (08:35)
[2017-01-13] MEDS: DOCUSATE SODIUM 100 MG CAP PO SCH (08:35)
[2017-01-13 09:00] VITALS: PULSE 84
[2017-01-13 12:00] VITALS: BP 98/68; PULSE 75; RESP 18; TEMP 97.1; O2SAT 98
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
== END 2017-01-13 13:43 | DRG 964 ==
LOC: NEPI 19:41 → MERGE 19:53 → NEDA 19:53 → EDBD 19:53 → N03B 21:36 → N06B 01-10 14:20
PROVIDERS: ADMIT Surgery; ATTEND Surgery
PROC: 0HQ1XZZ Repair Face Skin, External Approach (ICD-10-PCS; principal; 2017-01-03)
DX: S22.43XA Multiple fractures of ribs, bilateral, initial encounter for closed fracture (principal); S27.321A Contusion of lung, unilateral, initial encounter; S36.029A Unspecified contusion of spleen, initial encounter; S22.21XA Fracture of manubrium, initial encounter for closed fracture; F01.51 Vascular dementia, unspecified severity, with behavioral disturbance; S82.141A Displaced bicondylar fracture of right tibia, initial encounter for closed fracture; I48.91 Unspecified atrial fibrillation; I65.22 Occlusion and stenosis of left carotid artery; S02.2XXA Fracture of nasal bones, initial encounter for closed fracture; S42.022A Displaced fracture of shaft of left clavicle, initial encounter for closed fracture; S92.001A Unspecified fracture of right calcaneus, initial encounter for closed fracture; S82.301A Unspecified fracture of lower end of right tibia, initial encounter for closed fracture; S01.81XA Laceration without foreign body of other part of head, initial encounter; F10.129 Alcohol abuse with intoxication, unspecified; Y90.7 Blood alcohol level of 200-239 mg/100 ml; I69.320 Aphasia following cerebral infarction; V43.52XA Car driver injured in collision with other type car in traffic accident, initial encounter; Y92.410 Unspecified street and highway as the place of occurrence of the external cause
CPT/HCPCS: 12011; 70450; 70486; 70498; 71010; 71260; 72125; 72128; 72131; 72170; 73560; 73600; 73610; 73700; 74177; 76937; 80048; 80053; 80307; 82435; 82565; 82947; 84132; 84295; 84484; 84520; 85025; 85027; 85384; 85610; 85730; 86850; 86900; 86901; 87641; 90471; 90715; 93005; 93306; 93880; 94150; 94640; 94667; 94668; 96374; 96375; 99291; C9113; G0390; J0690; J1170; J1644; J1650; J2405; J3411; J7030; J7040; J7120; L1830; P9047; Q9967